=== PATIENT | male | born 1975 ===

== ENCOUNTER 2017-02-21 15:44 | Emergency (ER) | payer OTHER ==
[2017-02-21 16:08] VITALS: BMI 28.4
[2017-02-21 16:14] VITALS: RESP 18
[2017-02-21] MEDS ORDERED: Sodium Chloride 0.9% 1,000 ML IV ONE (16:36)
[2017-02-21] MEDS ORDERED: Sodium Chloride 0.9% 1,000 ML ONE (16:58)
[2017-02-21 17:01] LABS: BASO % 0.7 % (0.0-2.0); EOS # 0.1 K/uL (0.0-0.7); EOS % 1.4 % (0.0-4.0); HEMATOCRIT 44.5 % (35.0-51.0); LYMPH # 1.8 K/uL (1.0-4.3); LYMPH % 27.4 % (20.0-40.0); MEAN CELL VOLUME 88.1 fL (80.0-94.0); MEAN CORPUSCULAR HEMOGLOBIN 29.5 pg (27.0-31.0); MEAN CORPUSCULAR HGB CONC 33.5 g/dL (33.0-37.0); MEAN PLATELET VOLUME 7.3 fL (7.2-11.7); MONO # 0.4 K/uL (0.0-0.8); MONO % 5.7 % (0.0-10.0); NRBC % 0.1 % (0.0-2.0); RED CELL DISTRIBUTION WIDTH 12.9 % (11.5-14.5); WHITE BLOOD COUNT 6.6 K/uL (4.8-10.8)
[2017-02-21 17:02] LABS: ALB/GLOB RATIO 1.3 (1.0-2.1); ALKALINE PHOSPHATASE 77 U/L (38-126); ALT/SGPT 50 U/L (21-72); AST/SGOT 30 U/L (17-59); BILIRUBIN,TOTAL 1.1 mg/dL (0.2-1.3); BLOOD UREA NITROGEN 18 mg/dL (9-20); CALCIUM 8.8 mg/dl (8.6-10.4); CARBON DIOXIDE 26 mmol/L (22-30); CHLORIDE 100 mmol/L (98-107); GFR AFRICAN-AMERICAN > 60; GLUCOSE,RANDOM 88 mg/dL (75-110); POTASSIUM 3.4 mmol/L (3.6-5.2); SODIUM 136 mmol/L (132-148); TOTAL PROTEIN 8.2 g/dL (6.3-8.3)
--- NOTE | 2017-02-21 17:06 | C.PDOC ---
History Of Present Illness <Helga Lenz - Last Filed: 02/21/17 18:48> <Aquilino Figueroa - Last Filed: 02/21/17 20:31> 41 yr old male with PMHx of GERD presents to the ER for evaluation of epigastric pain and burning sensation intermittent for the past few months. Patient admits, was seen by GI and was diagnosed with H-Pylori , has completed the antibiotic tx without improvement in epigastric pain. Otherwise, Patient denies fever, chills, headache, dizziness, neck pain, chest pain, SOB, nausea, vomiting, diarrhea, change in appetite or food intolerance, denies dysuria, back pain. Ambulate to ED for evaluation, not in any apparent distress. (Helga Lenz) History Per: Patient History/Exam Limitations: no limitations Onset/Duration Of Symptoms: Gradual (Few months) Current Symptoms Are (Timing): Still Present Location Of Pain/Discomfort: Epigastric <Helga Lenz - Last Filed: 02/21/17 18:48> <Aquilino Figueroa P - Last Filed: 02/21/17 20:31> Time Seen by Provider: 02/21/17 16:16 Chief Complaint (Nursing): Abdominal Pain Past Medical History Reviewed: Historical Data, Nursing Documentation, Vital Signs - Medical History PMH: Back Problems (Pain), Hypercholesterolemia (Diet controlled per pt), Chronic Pain (back pain) Surgical History: Appendectomy Family History: States: No Known Family Hx - Social History Hx Tobacco Use: No Hx Alcohol Use: Yes Hx Substance Use: No - Immunization History Hx Tetanus Toxoid Vaccination: No Hx Influenza Vaccination: No Hx Pneumococcal Vaccination: No <Helga Lenz - Last Filed: 02/21/17 18:48> Vital Signs: Last Vital Signs Temp 98 F 02/21/17 16:08 Pulse 83 02/21/17 16:08 Resp 18 02/21/17 16:08 BP 131/77 02/21/17 16:08 Pulse Ox 96 02/21/17 18:50 Review Of Systems Except As Marked, All Systems Reviewed And Found Negative. Constitutional: Negative for: Fever, Chills Cardiovascular: Negative for: Chest Pain Respiratory: Negative for: Shortness of Breath Gastrointestinal: Positive for: Abdominal Pain (Epigastric). Negative for: Nausea, Vomiting Genitourinary: Negative for: Dysuria Musculoskeletal: Negative for: Back Pain Neurological: Negative for: Weakness, Numbness <Helga Lenz - Last Filed: 02/21/17 18:48> Physical Exam - Physical Exam Appears: Non-toxic, No Acute Distress Skin: Warm, Dry, No Rash Head: Normacephalic Eye(s): bilateral: PERRL Nose: No Flaring, No Discharge Oral Mucosa: Moist Throat: No Erythema, No Drooling Neck: Supple Cardiovascular: Rhythm Regular, No Murmur Respiratory: Normal Breath Sounds, No Rales, No Rhonchi, No Stridor, No Wheezing Gastrointestinal/Abdominal: Soft, Tenderness (Mild epigastric tenderness), No Guarding, No Rebound Back: No CVA Tenderness Extremity: Normal ROM, No Pedal Edema, No Deformity, No Swelling Neurological/Psych: Oriented x3, Normal Speech <Helga Lenz - Last Filed: 02/21/17 18:48> ED Course And Treatment - Laboratory Results Result Diagrams: 02/21/17 16:46 02/21/17 16:46 Lab Interpretation: No Acute Changes O2 Sat by Pulse Oximetry: 96 (RA) Pulse Ox Interpretation: Normal - CT Scan/US US - Gall Bladder Other Rad Studies (CT/US): Read By Radiologist, Radiology Report Reviewed Progress Note: On re-evaluation, pt appears comfortable, not in nay apparent distress. Afebrile, hemodynamicaly stable. Non-toxic. ENT: no acute findings. Lungs: CTA B/L, BS equal B/L. CVS: (+)S1S2, reg. Abd: benign, (-) guarding, (-) rebound, (-) loclaized tenderness. BAck: (-) CVA tenderness. UA results review and appears abnormal. Abx given. Blood work review- no acute abnoramlities, no leukocytosis, no anemia. CMP-normal. US gallbladder- pending. Case discussed with sign out to . <Helga Lenz - Last Filed: 02/21/17 18:48> - Laboratory Results Result Diagrams: 02/21/17 16:46 02/21/17 16:46 <Aquilino Figueroa - Last Filed: 02/21/17 20:31> Medical Decision Making <Helga Lenz - Last Filed: 02/21/17 18:48> <Aquilino Figueroa - Last Filed: 02/21/17 20:31> Medical Decision Making: PLAN: * US - Gall Bladder * CBC * CMP * Urinalysis * Pepcid IVP * Protonix IVP * Reglan IVP * Sodium Chloride IV (Helga Lenz) 1900 pt so to me pending US 1950 disc results. pt still c/o epigastric pain. sx have been ongoing for months , currently being rx for h pylori, and he is scheduled to see his GI specialist again on thursday. ordered lidocaine and maalox. 2030 pt feels better sx improved. (Aquilino Figueroa) Disposition - Disposition Disposition Time: 18:49 <Helga Lenz - Last Filed: 02/21/17 18:48> <Aquilino Figueroa - Last Filed: 02/21/17 20:31> - Disposition Condition: STABLE Forms: [employer] (Georgian) - Clinical Impression Clinical Impression: Epigastric abdominal pain, UTI (urinary tract infection) - PA / POST ANESTHESIA NURSE / Resident Statement MD/DO has reviewed & agrees with the documentation as recorded. - Scribe Statement The provider has reviewed the documentation as recorded by the Scribe <Helga Lenz - Last Filed: 02/21/17 18:48> <Aquilino Figueroa - Last Filed: 02/21/17 20:31> - Scribe Statement Xiao Aguillon All medical record entries made by the Scribe were at my direction and personally dictated by me. I have reviewed the chart and agree that the record accurately reflects my personal performance of the history, physical exam, medical decision making, and the department course for this patient. I have also personally directed, reviewed, and agree with the discharge instructions and disposition. (Helga Lenz) Physician Patient Turnover Patient Signed Over To: Aquilino Figueroa Handoff Comments: US gale, re-eval, dispo <Helga Lenz - Last Filed: 02/21/17 18:48>
[2017-02-21 17:07] LABS: RBC URINE 4 /hpf (0-3); URINE BACTERIA RARE (<OCC); URINE BILIRUBIN NEGATIVE (NEGATIVE); URINE BLOOD NEGATIVE (NEGATIVE); URINE COLOR Yellow (YELLOW); URINE GLUCOSE (UA) NORMAL (Normal); URINE KETONE NEGATIVE (NEGATIVE); URINE LEUKOCYTE ESTERASE NEG Leu/uL (Negative); URINE PROTEIN NEGATIVE (NEGATIVE); URINE UROBILINOGEN NORMAL mg/dL (0.2-1.0); WBC URINE 12 /hpf (0-5)
[2017-02-21] MEDS ORDERED: cefTRIAXone IV 1 gm in Dextros 50 ML IVPB ONE (18:08)
--- NOTE | 2017-02-21 19:50 | US ---
EXAM: US Abdomen Limited, Right Upper Quadrant EXAM DATE/TIME: Exam ordered 02/21/2017 4:37 PM CLINICAL HISTORY: 41 years old, male; Pain; Abdominal pain; Epigastric; Additional info: Ruq pain TECHNIQUE: Real-time ultrasound of the right upper quadrant with image documentation. COMPARISON: US - ABDOMEN COMPLETE 2015-03-16 08:47 FINDINGS: Liver: There is a simple cyst in the left lobe of the liver measuring 1.2 cm in maximum diameter. The liver measures 15 cm in craniocaudal span. There is normal blood flow direction in the main portal vein. No intrahepatic bile duct dilation. Gallbladder: Unremarkable. No gallstones. Common bile duct: The common bile duct measures 3 mm. No stones. No dilation. Pancreas: The pancreas is not seen due to bowel gas. Right kidney: The right kidney measures 11.2 x 5 x 4.7 cm. There is a hypoechoic lesion in the lower pole of the right kidney measuring 1.3 cm in greatest diameter. A few internal echoes are present. There does appear to be posterior wall enhancement. Mild sound transmission is noted through the lesion. No stones. Aorta: The mid and distal abdominal aorta are not well-seen due to bowel gas. Proximally there is no evidence of aneurysm. IMPRESSION: 1. No gallstones or ultrasound evidence of acute cholecystitis. 2. Simple hepatic cyst. 3. 1.3 cm hypoechoic lesion lower pole right kidney not meeting the ultrasound criteria for simple cyst. This may be related to technical factors including patient body habitus. This lesion was not definitely seen previously. Recommend abdominal CT or MRI follow-up in 6 months.
[2017-02-21] MEDS ORDERED: Alum-Mag Hydrox-Simethicone Susp (30 mL) PO STA (20:02)
[2017-02-21] MEDS ORDERED: Alum-Mag Hydrox-Simethicone Susp (30 mL) ONE (20:06)
[2017-02-21 20:43] VITALS: BP 134/77; PULSE 64; TEMP 97.4; O2SAT 97
== END 2017-02-21 20:45 | disposition home or self-care (01) ==
LOC: C.ER 15:44
DX: N39.0 Urinary tract infection, site not specified (principal); R10.13 Epigastric pain; E78.00 Pure hypercholesterolemia, unspecified
CPT/HCPCS: 76705; 80053; 81001; 83690; 85025; 96361; 96365; 96375; 99284; C9113; J0696; J2765; J7040

== ENCOUNTER 2018-04-01 12:41 | Emergency (ER) | payer OTHER ==
[2018-04-01 12:42] VITALS: BMI 26.3
[2018-04-01] MEDS ORDERED: Sodium Chloride 0.9% 1,000 ML IV ONE (13:33)
[2018-04-01] MEDS ORDERED: Sodium Chloride 0.9% 1,000 ML ONE (13:46)
--- NOTE | 2018-04-01 14:03 | C.PDOC ---
History Of Present Illness 42 year old male, whose past medical history includes gastritis, H. Pylori, and high cholesterol presents to the ED for evaluation, stating he has been feeling unwell and experiencing generalized body aches, subjective fever, chills, and cough for several days. Patient states he developed a headache, felt dizzy and had some nausea and vomiting last night. He is now complaining of mid-epigastric abdominal pain. Patient states pain is constant, and unchanged by eating or change in position. Patient did not take his temperature, but reports subjective fever. Patient denies back pain or urinary symptoms. Time Seen by Provider: 04/01/18 13:28 Chief Complaint (Nursing): Abdominal Pain History Per: Patient History/Exam Limitations: no limitations Onset/Duration Of Symptoms: Days Current Symptoms Are (Timing): Still Present Location Of Pain/Discomfort: Epigastric Associated Symptoms: Fever, Nausea, Vomiting. denies: Back Pain, Urinary Symptoms Exacerbating Factors: None. denies: Food, Upright Position Alleviating Factors: None Additional History Per: Patient Past Medical History Reviewed: Historical Data, Nursing Documentation, Vital Signs Vital Signs: Last Vital Signs Temp 98.0 F 04/01/18 12:54 Pulse 83 04/01/18 12:54 Resp 20 04/01/18 12:54 BP 147/77 04/01/18 12:54 Pulse Ox 97 04/01/18 12:54 - Medical History PMH: Back Problems, Gastritis, Hypercholesterolemia (Diet controlled per pt), Chronic Pain (back pain) Denies: Chronic Kidney Disease Surgical History: Appendectomy (2011) Family History: States: Unknown Family Hx, Hypertension - Social History Hx Tobacco Use: No Hx Alcohol Use: No Hx Substance Use: No - Immunization History Hx Tetanus Toxoid Vaccination: Yes (2018) Hx Influenza Vaccination: No Hx Pneumococcal Vaccination: Yes (2018) Review Of Systems Constitutional: Positive for: Fever Gastrointestinal: Positive for: Nausea, Vomiting, Abdominal Pain (epigastric ) Genitourinary: Negative for: Dysuria, Frequency, Hematuria Musculoskeletal: Negative for: Back Pain Neurological: Positive for: Headache, Dizziness Physical Exam - Physical Exam Appears: Non-toxic, No Acute Distress Skin: Normal Color, Warm, Dry Head: Atraumatic, Normacephalic Eye(s): bilateral: Normal Inspection Oral Mucosa: Moist Neck: Supple Chest: Symmetrical, No Deformity, No Tenderness Cardiovascular: Rhythm Regular, No Murmur Respiratory: Normal Breath Sounds, No Rales, No Rhonchi, No Wheezing Gastrointestinal/Abdominal: Soft, Tenderness (mild, epigastric ), No Guarding, No Rebound Extremity: Normal ROM, Capillary Refill (less than 2 seconds ) Neurological/Psych: Oriented x3, Normal Speech, Normal Cognition ED Course And Treatment - Laboratory Results Result Diagrams: 04/01/18 13:55 04/01/18 13:55 Lab Interpretation: Normal O2 Sat by Pulse Oximetry: 97 (on RA ) Pulse Ox Interpretation: Normal Progress Note: Bloodwork, urinalysis, Flu swab ordered. Patient is negative for Flu A/B. Tylenol PO, Zofran IVP and IV Fluids given. Reevaluation Time: 14:49 Reassessment Condition: Improved Disposition Counseled Patient/Family Regarding: Studies Performed, Diagnosis, Need For Followup, Rx Given - Disposition Referrals: Ronit Bernstein [Staff Provider] - Disposition: HOME/ ROUTINE Disposition Time: 14:57 Condition: IMPROVED Prescriptions: Pantoprazole Sodium [Protonix] 40 mg PO DAILY #14 ect Instructions: Gastritis (DC) Forms: [employer] (Irish) Print Language: GREEK - Clinical Impression Clinical Impression: Gastritis - Scribe Statement The provider has reviewed the documentation as recorded by the Scribe Provider Attestation: All medical record entries made by the Scribe were at my direction and personally dictated by me. I have reviewed the chart and agree that the record accurately reflects my personal performance of the history, physical exam, medical decision making, and the department course for this patient. I have also personally directed, reviewed, and agree with the discharge instructions and disposition.
[2018-04-01 14:07] LABS: BASO % 0.7 % (0.0-2.0); EOS # 0.1 K/uL (0.0-0.7); EOS % 1.4 % (0.0-4.0); HEMOGLOBIN 15.2 g/dL (12.0-18.0); LYMPH # 1.2 K/uL (1.0-4.3); LYMPH % 21.1 % (20.0-40.0); MEAN CELL VOLUME 89.2 fL (80.0-94.0); MEAN CORPUSCULAR HEMOGLOBIN 29.9 pg (27.0-31.0); MEAN CORPUSCULAR HGB CONC 33.5 g/dL (33.0-37.0); MEAN PLATELET VOLUME 7.1 fL (7.2-11.7); MONO # 0.3 K/uL (0.0-0.8); MONO % 4.6 % (0.0-10.0); NEUT # 4.1 K/uL (1.8-7.0); NEUT % 72.2 % (50.0-75.0); RBC 5.09 Mil/uL (4.40-5.90); RED CELL DISTRIBUTION WIDTH 12.8 % (11.5-14.5); WHITE BLOOD COUNT 5.6 K/uL (4.8-10.8)
[2018-04-01 14:19] LABS: ALB/GLOB RATIO 1.7 (1.0-2.1); ALBUMIN 4.7 g/dL (3.5-5.0); ALT/SGPT 61 U/L (21-72); AST/SGOT 39 U/L (17-59); BLOOD UREA NITROGEN 15 mg/dL (9-20); GFR NON-AFRICAN AMERICAN > 60; LIPASE 42 U/L (23-300)
[2018-04-01 14:39] LABS: URINE BILIRUBIN NEGATIVE (NEGATIVE); URINE BLOOD 1+ (NEGATIVE); URINE CLARITY Clear (Clear); URINE COLOR Yellow (YELLOW); URINE GLUCOSE (UA) NORMAL (Normal); URINE LEUKOCYTE ESTERASE NEG Leu/uL (Negative); URINE PROTEIN NEGATIVE (NEGATIVE); URINE UROBILINOGEN NORMAL mg/dL (0.2-1.0)
[2018-04-01 15:24] VITALS: BP 130/77; PULSE 66; RESP 18; TEMP 97.7
[2018-04-01 16:00] VITALS: O2SAT 97
== END 2018-04-01 15:24 | disposition home or self-care (01) ==
LOC: C.ER 12:41
DX: K29.70 Gastritis, unspecified, without bleeding (principal); E78.00 Pure hypercholesterolemia, unspecified
CPT/HCPCS: 80053; 81001; 83690; 85025; 87804; 96374; 99284; J2405; J7030

== ENCOUNTER 2018-05-03 16:42 | Emergency (ER) | payer OTHER ==
[2018-05-03 17:00] VITALS: BMI 26.9
[2018-05-03 17:07] VITALS: PULSE 82
--- NOTE | 2018-05-03 17:59 | C.PDOC ---
History Of Present Illness Patient is a 42 year old male who presents to the ED c/o intermittent chest tightness with SOB that has been going on for 4 days. She has a PMHx of similar symptoms where her diagnoses was anxiety. Patient notes that she is nervous and has had a recent in the family. She denies any headache, nausea, vomiting, fever, or chills. <Kaelyn Bolivar - Last Filed: 05/03/18 18:01> History Per: Patient History/Exam Limitations: no limitations Onset/Duration Of Symptoms: Days (4) Current Symptoms Are (Timing): Still Present Quality: Tightness (chest), Other (SOB) Associated Symptoms: denies: Nausea Recent travel outside of the [place]: No Additional History Per: Patient <Kaelyn Bolivar - Last Filed: 05/03/18 18:01> <Radha Page - Last Filed: 05/03/18 19:58> Time Seen by Provider: 05/03/18 17:38 Chief Complaint (Nursing): Chest Pain Past Medical History Reviewed: Historical Data, Nursing Documentation, Vital Signs Vital Signs: Last Vital Signs Temp 98.7 F 05/03/18 17:00 Pulse 82 05/03/18 17:00 Resp 17 05/03/18 17:00 BP 131/84 05/03/18 17:00 Pulse Ox 97 05/03/18 17:00 - Medical History PMH: Back Problems, Gastritis, Hypercholesterolemia (Diet controlled per pt), Chronic Pain (back pain) Denies: Chronic Kidney Disease Surgical History: Appendectomy (2011) Family History: States: Unknown Family Hx, Hypertension - Social History Hx Tobacco Use: No Hx Alcohol Use: No Hx Substance Use: No - Immunization History Hx Tetanus Toxoid Vaccination: Yes (2017) Hx Influenza Vaccination: No Hx Pneumococcal Vaccination: Yes (Feb 2017) <Kaelyn Bolivar - Last Filed: 05/03/18 18:01> Vital Signs: Last Vital Signs Temp 98.7 F 05/03/18 17:00 Pulse 82 05/03/18 17:00 Resp 17 05/03/18 17:00 BP 131/84 05/03/18 17:00 Pulse Ox 97 05/03/18 18:02 <Radha Page - Last Filed: 05/03/18 19:58> Review Of Systems Constitutional: Negative for: Fever, Chills Cardiovascular: Positive for: Other (chest tightness ) Respiratory: Positive for: Shortness of Breath Gastrointestinal: Negative for: Nausea, Vomiting Neurological: Negative for: Headache <Kaelyn Bolivar Last Filed: 05/03/18 18:01> Physical Exam - Physical Exam Appears: Non-toxic, No Acute Distress Skin: Normal Color, Warm, Dry Head: Atraumatic, Normacephalic Oral Mucosa: Moist Neck: Normal ROM, Supple Chest: Symmetrical, No Deformity Cardiovascular: Rhythm Regular, No Murmur Respiratory: Normal Breath Sounds, No Rales, No Rhonchi, No Wheezing Gastrointestinal/Abdominal: Soft Extremity: Normal ROM Neurological/Psych: Oriented x3, Normal Speech, Normal Cognition <Kaelyn Bolivar Last Filed: 05/03/18 18:01> ED Course And Treatment ECG: Interpreted By Me, Viewed By Me ECG Rhythm: Sinus Rhythm Rate From EC O2 Sat by Pulse Oximetry: 97 (on RA) Pulse Ox Interpretation: Normal Progress Note: EKG, Bloodwork, CXR ordered and reviewed. Xanax 0.5mg PO given. <Kaelyn Bolivar Last Filed: 05/03/18 18:01> - Laboratory Results Result Diagrams: 05/03/18 18:04 05/03/18 18:04 Lab Results: Troponin I < 0.0120 ng/mL (0.00-0.120) 05/03/18 18:04 Total Bilirubin 0.9 mg/dL (0.2-1.3) 05/03/18 18:04 AST 38 U/L (17-59) 05/03/18 18:04 ALT 44 U/L (21-72) 05/03/18 18:04 Alkaline Phosphatase 101 U/L (38-126) 05/03/18 18:04 Total Protein 7.8 g/dL (6.3-8.3) 05/03/18 18:04 Albumin 4.9 g/dL (3.5-5.0) 05/03/18 18:04 Globulin 3.0 gm/dL (2.2-3.9) 05/03/18 18:04 Albumin/Globulin Ratio 1.6 (1.0-2.1) 05/03/18 18:04 - Other Rad CXR X-Ray: Viewed By Me, Read By Radiologist Interpretation: IMPRESSION: Focal bilateral right greater than left upper lobe scarring as seen on prior imaging studies. No evidence of consolidation, pleural effusion, or pneumothorax. <Radha Page - Last Filed: 05/03/18 19:58> Medical Decision Making Medical Decision Makin:15- Patient was signed out to me pending labs and X-Ray. Both labs and imaging were negative, informed the patient about the findings and advised him to follow up with his PMD. Patient reports he has PMHx of gastritis and anxiety. Patient has a follow up appointment with his GI doctor next month and an appointment with his PMD in the next couple of weeks. Patient is asking for a refill for his Protonix and anxiety medications until his follow ups. Patient states he takes 40 mg daily of protonix. Will give patient prescription for atarax and protonix until follow up next week. <Radha Page - Last Filed: 05/03/18 19:58> Disposition Counseled Patient/Family Regarding: Studies Performed, Diagnosis - Disposition Disposition Time: 18:02 <Kaelyn Bolivar - Last Filed: 05/03/18 18:01> Counseled Patient/Family Regarding: Studies Performed, Diagnosis - Disposition Disposition Time: 19:24 - POA Present On Arrival: None <Radha Page - Last Filed: 05/03/18 19:58> - Disposition Referrals: Carla Batres MD [Medical Doctor] - Disposition: HOME/ ROUTINE Condition: STABLE Prescriptions: hydrOXYzine HCl [Atarax] 50 mg PO TID PRN #30 tab PRN Reason: Anxiety Pantoprazole Sodium [Protonix] 40 mg PO DAILY #30 ect Instructions: Chest Pain That Is Not Caused by the Heart (DC), Anxiety, Adult (DC) Forms: Gen Discharge Inst Georgian, [employer] (Georgian) - Clinical Impression Clinical Impression: Chest pain, Anxiety, Medication refill - Scribe Statement The provider has reviewed the documentation as recorded by the Faviola Bedoya All medical record entries made by the Scribe were at my direction and personally dictated by me. I have reviewed the chart and agree that the record accurately reflects my personal performance of the history, physical exam, medical decision making, and the department course for this patient. I have also personally directed, reviewed, and agree with the discharge instructions and disposition. <Kaelyn Bolivar - Last Filed: 05/03/18 18:01> Physician Patient Turnover Patient Signed Over To: Radha Page Handoff Comments: FU LABS, DISPO <Kaelyn Bolivar - Last Filed: 05/03/18 18:01>
[2018-05-03 18:20] LABS: BASO % 0.7 % (0.0-2.0); EOS # 0.1 K/uL (0.0-0.7); EOS % 1.3 % (0.0-4.0); HEMOGLOBIN 15.5 g/dL (12.0-18.0); LYMPH # 1.5 K/uL (1.0-4.3); LYMPH % 24.5 % (20.0-40.0); MEAN CELL VOLUME 88.9 fL (80.0-94.0); MEAN CORPUSCULAR HEMOGLOBIN 29.4 pg (27.0-31.0); MEAN CORPUSCULAR HGB CONC 33.1 g/dL (33.0-37.0); MEAN PLATELET VOLUME 7.1 fL (7.2-11.7); MONO # 0.3 K/uL (0.0-0.8); MONO % 4.8 % (0.0-10.0); NEUT # 4.3 K/uL (1.8-7.0); NEUT % 68.7 % (50.0-75.0); RBC 5.28 Mil/uL (4.40-5.90); RED CELL DISTRIBUTION WIDTH 12.6 % (11.5-14.5); WHITE BLOOD COUNT 6.2 K/uL (4.8-10.8)
[2018-05-03 18:22] LABS: ALB/GLOB RATIO 1.6 (1.0-2.1); ALBUMIN 4.9 g/dL (3.5-5.0); ALT/SGPT 44 U/L (21-72); AST/SGOT 38 U/L (17-59); BLOOD UREA NITROGEN 14 mg/dL (9-20); CALCIUM 8.9 mg/dl (8.6-10.4); GFR NON-AFRICAN AMERICAN > 60
--- NOTE | 2018-05-03 18:24 | RAD ---
HISTORY: chest pain COMPARISON: Chest x-ray performed 12/17/15, CT chest with IV contrast performed 11/10/23 TECHNIQUE: Chest PA and lateral FINDINGS: LUNGS: Focal bilateral right greater than left upper lobe scarring as seen on prior imaging study. Please note that chest x-ray has limited sensitivity for the detection of pulmonary masses. PLEURA: No significant pleural effusion identified. No definite pneumothorax . CARDIOVASCULAR: Heart size appears within normal limits. No atherosclerotic calcification present. OSSEOUS STRUCTURES: No acute osseous abnormality identified. VISUALIZED UPPER ABDOMEN: Unremarkable. OTHER FINDINGS: None. IMPRESSION: Focal bilateral right greater than left upper lobe scarring as seen on prior imaging studies. No evidence of consolidation, pleural effusion, or pneumothorax.
[2018-05-03 19:51] VITALS: BP 127/79; RESP 14; TEMP 98.5; O2SAT 98
--- NOTE | 2018-05-04 20:32 | CARD ---
APPROVED REPORT Date of service: 05/03/2018 EKG Measurement Heart [id number] <Conclusion> Normal sinus rhythm Normal ECG
== END 2018-05-03 19:51 | disposition home or self-care (01) ==
LOC: C.ER 16:42
DX: F41.9 Anxiety disorder, unspecified (principal); R07.9 Chest pain, unspecified; Z76.0 Encounter for issue of repeat prescription

== ENCOUNTER 2018-08-28 23:11 | Emergency (ER) | payer SELFPAY ==
[2018-08-28 23:12] VITALS: BMI 26.9
[2018-08-28 23:47] VITALS: BP 130/65; PULSE 72; TEMP 99.2; O2SAT 99
--- NOTE | 2018-08-29 00:43 | C.PDOC ---
History Of Present Illness 42 year old male presents to ED with complaint of lower back pain due to herniated disc. Patient also complains of pain to his bilateral legs and thighs for the past 2 weeks. He states that the pain is worse today after leaving his chiropractor's office. He also complains of a dry, itchy rash to his bilateral upper extremities and upper back for the past week. He denies incontinence, weakness, numbness, and saddle anesthesia. Time Seen by Provider: 08/28/18 23:52 Chief Complaint (Nursing): Back Pain History Per: Patient History/Exam Limitations: no limitations Onset/Duration Of Symptoms: Worse Since, Other (2 weeks) Current Symptoms Are (Timing): Still Present Quality Of Discomfort: "Pain" Associated Symptoms: denies: Incontinence, New Weakness, New Numbness Past Medical History Reviewed: Historical Data, Nursing Documentation, Vital Signs Vital Signs: Last Vital Signs Temp 99.2 F 08/28/18 23:43 Pulse 72 08/28/18 23:43 Resp 18 08/28/18 23:43 BP 130/65 08/28/18 23:43 Pulse Ox 99 08/28/18 23:43 - Medical History PMH: Back Problems, Gastritis, Hypercholesterolemia (Diet controlled per pt), Chronic Pain (back pain) Denies: Chronic Kidney Disease Surgical History: Appendectomy (2011) Family History: States: Unknown Family Hx, Hypertension - Social History Hx Tobacco Use: No Hx Alcohol Use: No Hx Substance Use: No - Immunization History Hx Tetanus Toxoid Vaccination: Yes (2017) Hx Influenza Vaccination: No Hx Pneumococcal Vaccination: Yes (Feb 2017) Review Of Systems Constitutional: Negative for: Fever, Chills, Weakness Genitourinary: Negative for: Incontinence Musculoskeletal: Positive for: Back Pain (lower back pain ), Leg Pain (bilateral lower extremities and thighs) Skin: Positive for: Rash (bilateral upper extremities and upper back) Neurological: Negative for: Weakness, Numbness Physical Exam - Physical Exam Appears: Non-toxic, No Acute Distress Skin: Dry, Rash (erythematous, dry rash to the dorsal aspects of the bilateral upper extremities and to the posterior neck), No Other (vesicles or pustules) Head: Atraumatic, Normacephalic Neck: Normal ROM, No Midline Cervical Tenderness, No Paracervical Tenderness, Supple Chest: Symmetrical, No Deformity Cardiovascular: Rhythm Regular, No Murmur Back: No Vertebral Tenderness, Paraspinal Tenderness (paralumbar tenderness), Straight Leg Raising (ROM of the left lower extremity + at 40 degrees) Extremity: Capillary Refill (<2 seconds) Extremity: Bilateral: Normal Color And Temperature Pulses: Left Radial: Normal, Right Radial: Normal, Left Dorsalis Pedis: Normal, Right Dorsalis Pedis: Normal Neurological/Psych: Oriented x3, Normal Speech, Normal Cognition, Normal Motor, Normal Sensation Gait: Steady ED Course And Treatment O2 Sat by Pulse Oximetry: 99 (in RA) Pulse Ox Interpretation: Normal Progress Note: Patient given flexeril and toradol. Pt in No acute pain distress, neurovascular intact. Will dc home with follow up and RX Reassessment Condition: Improved Disposition Counseled Patient/Family Regarding: Diagnosis, Need For Followup, Rx Given - Disposition Referrals: [facility] [Outside] [facility] [place] [Outside] Disposition: HOME/ ROUTINE Disposition Time: 00:39 Condition: STABLE Additional Instructions: Please follow up in clinic Take medications as directed May take benadryl tabs for itching Return to ER if worse Prescriptions: Cyclobenzaprine [Cyclobenzaprine HCl] 10 mg PO HS #10 tab Hydrocortisone 1% Cream [Cortizone 1% Cream] 1 appl TP BID #60 g Naproxen [Naprosyn] 1 tab PO BID PRN #25 tab PRN Reason: Pain Instructions: Low Back Pain (DC) Forms: [employer] (Palestinian) - Clinical Impression Clinical Impression: Sciatica, Low back pain, Skin rash - PA / BUSINESS UNIT LEADER / Resident Statement MD/DO has reviewed & agrees with the documentation as recorded. (Fabi [place]) - Scribe Statement The provider has reviewed the documentation as recorded by the Scribe (Fabi [place]) All medical record entries made by the Scribe were at my direction and personally dictated by me. I have reviewed the chart and agree that the record accurately reflects my personal performance of the history, physical exam, medical decision making, and the department course for this patient. I have also personally directed, reviewed, and agree with the discharge instructions and disposition.
[2018-08-29 00:51] VITALS: RESP 20
== END 2018-08-29 00:50 | disposition home or self-care (01) ==
LOC: C.ER 23:11
DX: M54.40 Lumbago with sciatica, unspecified side (principal); R21 Rash and other nonspecific skin eruption
CPT/HCPCS: 96372; 99284; J1885